=== PATIENT | male | born 1960 | race African-American/Black ===

== ENCOUNTER 2018-10-20 00:20 | Emergency (ER) | payer MEDICAID ==
[~2018-10-20] VITALS: Ht 180.3 cm; Wt 86.2 kg
--- NOTE | 2018-10-20 00:20 | NUR ---
PT DILCIA BLS. TAKEN TO BED 5
[2018-10-20 00:32] VITALS: BP 181/118
--- NOTE | 2018-10-20 00:42 | NUR ---
58 Y/O M, BIBA TO ED FOUND WANDERING AT A [employer] PARKING LOT, PT ADMITS TO SMOKING SPICE, PT TALKING TO SELF, NOTED EXCESSIVE SPEECH, ANSWERS TO SOME QUESTIONS APPROPRIATELY. AAO TO NAME, TIME AND LOCATION, [facility], RR EVEN UNLABORED, ED MD DR. TAYLOR MADE AWARE, WILL CONTINUE TO MONITOR CLOSELY, BED LOCKED IN LOWEST POSITION, BILATERAL SIDERAILS UP.
--- NOTE | 2018-10-20 00:50 | NUR ---
Debora mason in [facility] - 10/20/18 at [address] Herrera examining patient.
--- NOTE | 2018-10-20 01:00 | NUR ---
Dr. Herrera examining patient.
--- NOTE | 2018-10-20 01:20 | NUR ---
Patient is awake, alert and oriented. Ambulatory with steady gait. Refuses offer of alf placement. Given list of available shelters in surrounding areas. Bus pass provided.
[2018-10-20 01:22] VITALS: BP 160/90
--- NOTE | 2018-10-20 01:22 | NUR ---
Patient discharged with v/s stable. Written and verbal after care instructions given and explained. Patient verbalized understanding. Ambulatory with steady gait. All questions addressed prior to discharge. Advised to follow up with PMD.
== END 2018-10-20 01:22 | disposition home or self-care (01) ==
LOC: MED 00:20
DX: F19.10 Other psychoactive substance abuse, uncomplicated (principal); I11.0 Hypertensive heart disease with heart failure; I50.9 Heart failure, unspecified; Z59.0 Homelessness
CPT/HCPCS: 99281; 99283

== ENCOUNTER 2018-10-20 07:54 | Emergency (ER) | payer MEDICAID ==
[~2018-10-20] VITALS: Ht 180.3 cm; Wt 86.2 kg
[2018-10-20 07:55] VITALS: BP 107/64
--- NOTE | 2018-10-20 08:01 | NUR ---
BROUGHT IN BY KRIS GARDINER FOR PRE-BOOK---PT HISTORY OF HTN DENIES ANY MEDICAL COMPLAINTS
[2018-10-20 08:06] VITALS: BP 107/64
--- NOTE | 2018-10-20 08:07 | NUR ---
Patient discharged with v/s stable. Written and verbal after care instructions given and explained. Patient verbalized understanding. Police with in custody. All questions addressed prior to discharge. Advised to follow up with PMD.
== END 2018-10-20 08:00 ==
LOC: MED 07:54
DX: I11.0 Hypertensive heart disease with heart failure (principal); I50.9 Heart failure, unspecified; F17.200 Nicotine dependence, unspecified, uncomplicated; Z98.890 Other specified postprocedural states; Z02.89 Encounter for other administrative examinations
CPT/HCPCS: 99283